=== PATIENT | female | born 1980 | race Caucasian/White ===

== ENCOUNTER → 2017-10-10 | Outpatient (CLI) | payer BC ==
[~2017-10-10] MED LIST: ADVIL,NUPRIN,M200 MG PO; HYDROCODON-ACE1 EAC7 PO; MOTRIN400 MG PO; PERCOCET 5/31 TABLET PO; PRENATAL TABLE1 EAC3 PO; PROBIOTIC ACID1 EAC3 PO; VALTREX50 MG/ML PO; WOMEN'S DAILY1 EAC1 PO
== END | disposition home or self-care (01) ==
LOC: EKG 12:32
DX: I07.1 Rheumatic tricuspid insufficiency (principal)
CPT/HCPCS: 93306